=== PATIENT | female | born 1975 | race Two or more races ===

== ENCOUNTER 2023-06-02 22:35 | Emergency (ER) | payer OTHER ==
[~2023-06-02] VITALS: Ht 162.6 cm; Wt 59.1 kg
[2023-06-03] MEDS ORDERED: cefTRIAXone SOD 1,000 MG VL IM ONE (02:30)
[2023-06-03] MEDS ORDERED: CEPH500C PO (02:49)
[2023-06-03] MEDS ORDERED: ACET500T58 PO (02:49)
[2023-06-03 03:15] VITALS: BP 119/74; PULSE 64; RESP 22; TEMP 98
[2023-06-03 03:50] VITALS: O2SAT 97
== END 2023-06-03 03:15 | disposition home or self-care (01) ==
LOC: ER 22:44
DX: S51.812A Laceration without foreign body of left forearm, initial encounter (principal); Z98.890 Other specified postprocedural states; W45.8XXA Other foreign body or object entering through skin, initial encounter; Y93.89 Activity, other specified; Y92.89 Other specified places as the place of occurrence of the external cause; Y99.8 Other external cause status
CPT/HCPCS: 12002; 96372; 99283; J0696